=== PATIENT | female | born 1985 | race American Indian/Alaskan Native ===

== ENCOUNTER 2017-09-26 19:10 | Emergency (ER) | payer SELFPAY ==
[2017-09-26 20:05] LABS: Basophils # (Auto) 0.1 K/mm3 (0.0-0.1); Basophils % (Auto) 0.9 % (0.0-1.8); Eosinophils # (Auto) 0.2 K/mm3 (0.0-0.4); Eosinophils % (Auto) 1.5 % (0.0-4.3); Hematocrit 36.1 % (30.3-42.9); Hemoglobin 12.1 gm/dl (10.1-14.3); Lymphocytes % (Auto) 32.2 % (13.4-35.0); Mean Corpuscular HGB Conc 34 % (30-34); Mean Corpuscular Hemoglobin 28 pg (28-32); Mean Corpuscular Volume 84 fl (79-97); Monocytes # (Auto) 0.6 K/mm3 (0.0-0.8); Monocytes % (Auto) 4.7 % (0.0-7.3); Platelet Count 294 K/mm3 (140-440); Red Blood Count 4.28 M/mm3 (3.65-5.03)
[2017-09-26 20:15] LABS: INR 0.87 (0.87-1.13)
[2017-09-26 20:16] LABS: Partial Thromboplastin Time 31.1 Sec. (24.2-36.6)
[2017-09-26 20:34] LABS: BUN/Creatinine Ratio 18; Blood Urea Nitrogen 11 mg/dL (7-17); Calcium 9.4 mg/dL (8.4-10.2); Hemolysis Index 3
[2017-09-26 20:54] VITALS: BP 122/77
--- NOTE | 2017-09-26 21:30 | Emergency Department Report ---
ED Extremity Problem HPI - General Chief complaint: Extremity Injury, Lower Stated complaint: LEG SWELLING Time Seen by Provider: 09/26/17 20:20 Source: patient Mode of arrival: Ambulatory Limitations: No Limitations - History of Present Illness Initial comments: PT. says the pain started 1.5 weeks ago and radiates to the posterior aspect of the knee. no hx of trauma MD Complaint: extremity swelling -: Gradual Location: lower extremity (LEFT) History of Same: No Severity scale (0 -10): 9 Quality: aching Consistency: constant Improves with: nothing Worsens with: nothing Associated Symptoms: denies other symptoms - Related Data Home Medications Medication Instructions Recorded Confirmed Last Taken Aspirin BABY CHEW TAB 1 tab PO DAILY 09/26/17 09/26/17 Unknown Sertraline HCl [Zoloft] 50 mg PO DAILY 09/26/17 09/26/17 Unknown Vitamin C 500 mg PO DAILY 09/26/17 09/26/17 Unknown Xanax TAB 0.25 mg PO DAILY PRN 09/26/17 09/26/17 Unknown Allergies Allergy/AdvReac Type Severity Reaction Status Date / Time No Known Allergies Allergy Unverified 09/26/17 19:43 ED Review of Systems ROS: Stated complaint: LEG SWELLING Other details as noted in HPI Comment: All other systems reviewed and negative ED Past Medical Hx - Past Medical History Previous Medical History?: Yes Additional medical history: Mitral Valve Prolapse, Heart Murmur, Obesity - Surgical History Additional Surgical History: - Social History Smoking Status: Never Smoker Substance Use Type: None - Medications Home Medications: Home Medications Medication Instructions Recorded Confirmed Last Taken Type Aspirin BABY CHEW TAB 1 tab PO DAILY 09/26/17 09/26/17 Unknown History Sertraline HCl [Zoloft] 50 mg PO DAILY 09/26/17 09/26/17 Unknown History Vitamin C 500 mg PO DAILY 09/26/17 09/26/17 Unknown History Xanax TAB 0.25 mg PO DAILY PRN 09/26/17 09/26/17 Unknown History ED Physical Exam - General Limitations: No Limitations General appearance: alert, in no apparent distress - Head Head exam: Present: atraumatic, normocephalic - Eye Eye exam: Present: normal appearance - ENT ENT exam: Present: mucous membranes moist - Neck Neck exam: Present: normal inspection - Respiratory Respiratory exam: Present: normal lung sounds bilaterally. Absent: respiratory distress - Cardiovascular Cardiovascular Exam: Present: regular rate, normal rhythm. Absent: systolic murmur, diastolic murmur, rubs, gallop - GI/Abdominal GI/Abdominal exam: Present: soft, normal bowel sounds. Absent: distended - Rectal Rectal exam: Present: deferred - Extremities Exam Extremities exam: Present: other (swelling and ttp of the medial aspect of the left leg . ttp of the posterior aspect of knee. varicose veins of left lower extremity) - Back Exam Back exam: Present: normal inspection - Neurological Exam Neurological exam: Present: alert, oriented X3 - Psychiatric Psychiatric exam: Present: normal affect, normal mood - Skin Skin exam: Present: warm, dry, intact, normal color. Absent: rash ED Course Vital Signs 09/26/17 09/26/17 19:37 20:51 Temperature 98 F 98.2 F Pulse Rate 82 70 Respiratory 18 16 Rate Blood Pressure 137/83 Blood Pressure 122/77 [Left] O2 Sat by Pulse 98 98 Oximetry ED Medical Decision Making - Lab Data Result diagrams: 09/26/17 19:51 09/26/17 19:51 Critical care attestation.: If time is entered above; I have spent that time in minutes in the direct care of this critically ill patient, excluding procedure time. ED Disposition Clinical Impression: Leg pain, left, Varicose vein of leg Disposition: DC-01 TO HOME OR SELFCARE Is pt being admited?: No Does the pt Need Aspirin: No Condition: Stable Instructions: Knee Pain (ED), Varicose Veins (ED) Additional Instructions: talk to your PCP about further workup and possible outpatient ultrasound. apply warm compress to site and use compression stockings. take otyc tylenol as needed Referrals: LOBO PASCAL MD [Primary Care Provider] - 3-5 Days Time of Disposition: 21:33 Print Language: GHANAIAN
== END 2017-09-26 21:44 | disposition home or self-care (01) ==
LOC: ED 19:10
DX: I83.92 Asymptomatic varicose veins of left lower extremity (principal)
CPT/HCPCS: 36415; 80048; 85025; 85379; 85610; 85730; 99283